=== PATIENT | male | born 1960 | race Caucasian/White ===

== ENCOUNTER → 2022-08-24 | Outpatient (CLI) | payer OTHER, SELFPAY ==
--- NOTE | 2022-08-24 06:46 | MRI_ITS ---
EXAM: MR RIGHT UPPER EXTREMITY WITHOUT INTRAVENOUS CONTRAST, SHOULDER CLINICAL INDICATION: RT SHOULDER NONTRAUMATIC INCOMPLETE TEAR OF RT ROTATOR CUFF TECHNIQUE: Multiplanar and multisequence MR images of the right shoulder without intravenous contrast. This report was created using [employer] report generation technology. COMPARISON: None. FINDINGS: TENDONS: SUPRASPINATUS: Thickening and signal alteration in the anterior supraspinatus tendon consistent with tendinosis. INFRASPINATUS: Unremarkable. Intact. SUBSCAPULARIS: Thickening of the subscapularis tendon consistent with tendinosis or low-grade partial tear. TERES MINOR: Unremarkable. Intact. BICEPS BRACHII, LONG HEAD: Thickening and signal alteration of the intracapsular biceps tendon consistent with tendinosis. The extra-articular biceps tendon is in the bicipital groove. LIGAMENTS: GLENOHUMERAL: Unremarkable. Intact. MUSCLES: Unremarkable. No rotator cuff muscle atrophy. FLUID: Mild fluid in the subdeltoid-subacromial bursa consistent with bursitis. No joint effusion. CARTILAGE: Unremarkable. Articular cartilage intact. GLENOID LABRUM: Unremarkable. Intact, limited evaluation on non-arthrographic exam. BONES/JOINTS: Moderate acromioclavicular arthrosis. Moderate acromioclavicular joint effusion. Degenerative cyst in the greater tuberosity. No fracture. OTHER SOFT TISSUES: Unremarkable. No rotator interval edema. MRI/Upper Ext Joint Only(Routine) IMPRESSION: Supraspinatus and subscapularis tendinosis. Biceps tendinosis. Subdeltoid-subacromial bursal fluid consistent with bursitis. Electronically Signed: Abby Leonardo MD at 23:37 EST Reading Location ID and State: [id number] / Tel , Service support ,
== END | disposition home or self-care (01) ==
PROVIDERS: PCP Family Medicine
DX: M75.111 Incomplete rotator cuff tear or rupture of right shoulder, not specified as traumatic (principal); X58.XXXA Exposure to other specified factors, initial encounter; M75.21 Bicipital tendinitis, right shoulder; M75.51 Bursitis of right shoulder; M75.81 Other shoulder lesions, right shoulder
CPT/HCPCS: 73221